=== PATIENT | female | born 1965 | race Caucasian/White ===

== ENCOUNTER 2021-06-19 10:22 | Day surgery (SDC) | payer BC, SELFPAY ==
[~2021-06-19] VITALS: Ht 152.4 cm; Wt 68.0 kg
[~2021-06-19 10:22] MED LIST: CEFAZOLIN SOD 2 GM in D5W 50 ML IV ONE
[2021-06-19] MEDS ORDERED: PROPOFOL 200MG/ 20ML VIAL (DIPRIVAN) IV ONE (11:55)
[2021-06-19] MEDS ORDERED: LR 1,000 ML IV.SOLN IV ONE (11:55)
[2021-06-19] MEDS ORDERED: ONDANSETRON HCL 4 MG/2 ML VIAL IVP ONE (11:55)
[2021-06-19] MEDS ORDERED: NS IRRIG SOLN 1000 ML IR ONE (11:55)
[2021-06-19] MEDS ORDERED: SEVOFLURANE 15 MIN GAS INH ONE (11:55)
[2021-06-19] MEDS ORDERED: SUCCINYLCHOLINE CHLORIDE 20 MG/ML(QUELICIN) IVP ONE (11:55)
[2021-06-19] MEDS ORDERED: MEPERIDINE 50 MG/ML VIAL IM ONE (11:55)
[2021-06-19] MEDS ORDERED: fentaNYL CITRATE 250 MCG/5 ML AMP IV ONE (11:55)
[2021-06-19] MEDS ORDERED: ROCURONIUM BROMIDE 10 MG/ML (ZEMURON) IV ONE (11:55)
[2021-06-19] MEDS ORDERED: BUPIVACAINE /EPINEPHRINE/PF 0.5% 30 ML VIAL INJ ONE (11:55)
[2021-06-19] MEDS ORDERED: DEXAMETHASONE SOD PHOSPHATE 4 MG/ML VIAL IVP ONE (11:55)
[2021-06-19] MEDS ORDERED: NS 1000 ML IV.SOLN IV ONE (11:55)
[2021-06-19] MEDS ORDERED: SUGAMMADEX SODIUM 200 MG/2 ML VIAL IV ONE (11:55)
[2021-06-19] MEDS ORDERED: LR 1,000 ML IV SCH (13:45)
[2021-06-19] MEDS ORDERED: KETOROLAC TROMETHAMINE 30 MG VIAL IVP PRN (13:45)
[2021-06-19] MEDS ORDERED: ONDANSETRON HCL 4 MG/2 ML VIAL IVP PRN (13:45)
[2021-06-19] MEDS ORDERED: HYDROmorphone 1 MG/ML INJ. CARTRIDGE IVP PRN (13:45)
[2021-06-19] MEDS ORDERED: MEPERIDINE HCL/PF 25 MG/ML DISP.SYRIN IVP PRN (13:45)
[2021-06-19] MEDS ORDERED: METOCLOPRAMIDE HCL 10 MG/2 ML VIAL IVP PRN (13:45)
[2021-06-19 15:06] VITALS: BP_SYST 124
[2021-06-19] MEDS ORDERED: CEFAZOLIN SOD 2 GM in D5W 50 ML IV SCH (22:00)
== END 2021-06-19 15:45 | disposition home or self-care (01) ==
LOC: SDS 10:22 → SMU 10:23 → SDS 15:45
PROVIDERS: ATTEND Surgery
DX: K80.10 Calculus of gallbladder with chronic cholecystitis without obstruction (principal); Z90.710 Acquired absence of both cervix and uterus; Z20.822 Contact with and (suspected) exposure to COVID-19; Z79.899 Other long term (current) drug therapy
CPT/HCPCS: 36415; 47563; 74300; 87426; 88304; C1727; J0330; J0690; J1100; J2175; J2405; J2704; J3010; J3490 ×2; J7030; J7060; J7120; Q9967; U0003